=== PATIENT | female | born 1940 | race Caucasian/White ===

== ENCOUNTER 2022-12-14 13:01 | Emergency (ER) | payer MEDICARE, SELFPAY ==
[2022-12-14] VITALS (12 sets, daily range): BP systolic 147–177; BP diastolic 79–96; PULSE 71–89; RESP 9–23; TEMP 36.8–36.9; O2SAT 95–98
[2022-12-14 13:35] LABS: Basophils Percent Auto 0.5 % (0.2-1.2); Eosinophils Absolute Auto 0.1 K/mm3 (0-0.3); Eosinophils Percent Auto 1.9 % (0-4.4); Hematocrit 46.2 % (37.0-47.0); Hemoglobin 14.7 g/dL (12.0-15.0); Immature Granulocyte Absolute 0.02 K/mm3 (0.00-0.031); Immature Granulocyte Percent A 0.3 % (0-0.5); Lymphocytes Absolute Auto 1.32 K/mm3 (0.9-3.2); Lymphocytes Percent Auto 22.3 % (18.3-44.2); Mean Corpuscular HGB Conc 31.8 g/dl (32-36); Mean Corpuscular Hemoglobin 30.2 pg (26-34); Mean Corpuscular Volume 94.9 fl (80-100); Mean Platelet Volume 9.5 fl (7.4-10.4); Monocytes Absolute Auto 0.9 K/mm3 (0.1-0.6); Monocytes Percent Auto 15.2 % (2.6-8.5); Neutrophils Absolute Auto 3.5 K/mm3 (1.3-6.7); Neutrophils Percent Auto 59.8 % (45.5-73.1); Platelet Count Result 276 k/mm3 (150-375); Red Blood Count 4.87 M/mm3 (4.2-5.4); Red Cell Distribution Width 13.2 % (11.5-14.5); White Blood Count 5.9 K/mm3 (4.5-10.0)
[2022-12-14 13:42] LABS: Ethanol < 10 mg/dL (<10)
[2022-12-14 13:45] LABS: Alanine Aminotransferase 48 U/L (6-35); Albumin Level 4.1 g/dL (3.5-5.1); Alkaline Phosphatase 67 U/L (38-126); Anion Gap 9 mmol/L (8-16); Aspartate Amino Transferase 47 U/L (14-36); Bilirubin,Total 0.4 mg/dL (0.2-1.3); Blood Urea Nitrogen 11 mg/dL (7-17); Carbon Dioxide 29 mmol/L (22-30); Chloride 101 mmol/L (98-107); Estimated CRCL calculation 82 ml/min; Estimated Glomerular Filt Rate > 60; Glucose 97 mg/dL (65-110); Potassium 4.1 mmol/L (3.4-5.0); Sodium 139 mmol/L (137-145)
[2022-12-14 14:10] LABS: Amphetamine Screen Urine Negative (Negative); Barbiturate Screen Urine Negative (Negative); Benzodiazepines Screen Urine Negative (Negative); Cannabinoid Screen Urine Negative (Negative); Cocaine Screen Urine Negative (Negative); Methadone Screen Urine Negative (Negative); Opiate Screen Urine Negative (Negative); Phencyclidine Screen Urine Negative (Negative)
--- NOTE | 2022-12-14 14:20 | PC.NURSE ---
Lab called regarding status of UA results.
--- NOTE | 2022-12-14 14:24 | PC.NURSE ---
Per lab, not enough urine to perform UA.
[2022-12-14 15:05] LABS: Appearance Urine Clear (Clear); Bilirubin Urine Negative (Negative); Blood Urine Negative (Negative); Color Urine Yellow (Yellow); Glucose Urine UA Negative (Negative); Ketones Urine Negative (Negative); Leukocyte Esterase Ur Negative LEU/UL (Negative); Nitrate Urine Negative (Negative); Protein Urine Negative (Negative); Specific Grav Ur 1.006 (1.001-1.035); Urobilinogen Urine 0.2 mg/dL (<2.0); pH Urine 7.5 (5.0-9.0)
--- NOTE | 2022-12-14 15:13 | ED.GENADULT ---
HPI - General Adult General Chief complaint: Psychiatric Symptoms Stated complaint: psychotic, SI Time Seen by Provider: 12/14/22 13:30 Source: patient, family and old records reviewed Mode of arrival: EMS Limitations: no limitations History of Present Illness HPI narrative: Patient is an 82-year-old female, with a PMHx of dementia, who presents to the ED via EMS with report of agitation. Patient is a resident of [facility]. Per SD report, patient became agitated today and got into a verbal argument with staff demanding to go home. EMS was then contacted to bring the patient here for a psychiatric evaluation. Patient denies any SI or HI. She just reports that she became angry today and reached a breaking point. She was recently started on medication for depression and bipolar disorder per daughter at bedside who assisted in providing information. Daughter reports patient was moved into memory care facility at the beginning of November. She had previously been living with her who was her primary caregiver. Daughter states is a trigger for the patient and patient believes can take her home at any time. Patient wanted to go home today and was asking for her to take her home and became angry when staff told her differently. Related Data Home Medications Medication Instructions Recorded Confirmed calcium carbonate 600 mg-vitamin 1 tablet PO DAILY 12/04/19 D3 20 mcg (800 unit) tablet (Caltrate with Vitamin D3) levothyroxine 88 mcg capsule 88 mcg PO DAILY 12/04/19 omeprazole 40 mg capsule,delayed 40 mg PO DAILY 12/04/19 release donepezil 10 mg tablet 10 mg PO ONCE 03/08/20 memantine 10 mg tablet 10 mg PO BID 03/08/20 divalproex 125 mg capsule,delayed 125 mg PO BID 12/14/22 release sprinkle escitalopram oxalate 10 mg tablet 10 mg PO DAILY 12/14/22 mecobalamin (vitamin B12) 1,000 1,000 mcg PO DAILY 12/14/22 mcg chewable tablet multivit with minerals-iron 18 1 tablet PO 12/14/22 mg-folic ac 400 mcg-vit K 25 mcg tablet (Adults Multivitamin) quetiapine 25 mg tablet 50 mg PO HS 12/14/22 turmeric root extract 500 mg 500 mg PO DAILY 12/14/22 capsule Allergies Allergy/AdvReac Type Severity Reaction Status Date / Time azithromycin AdvReac Unknown Swelling Verified 12/14/22 13:12 Review of Systems Review of Systems: CONSTITUTIONAL: Denies fever, chills, or sweats. EYES: Denies visual changes. CARDIOVASCULAR: Denies chest pain. RESPIRATORY: Denies dyspnea. GASTROINTESTINAL: Denies abdominal pain, nausea, vomiting, or diarrhea. GENITOURINARY: Denies dysuria or hematuria. NEUROLOGIC: Denies headache, numbness, or weakness. PSYCHIATRIC: See HPI. All systems reviewed & are unremarkable except as noted in HPI and below PMFSH Past Medical History Medical History DESI positive (~09/2019) Generalized osteoarthritis of multiple sites Inflammatory arthritis Lichen planus Other specified counseling Surgical History Surgical History H/O total hysterectomy History of knee replacement Social History Social History Smoking status: Former smoker Alcohol intake: never Exam Narrative: GENERAL: Well appearing, obese, non-toxic, in no acute distress. HEAD: Normocephalic, atraumatic. NECK: Supple. No adenopathy, no masses. RESPIRATORY: Airway patent, respirations nonlabored. Clear to auscultation bilaterally, no rales, rhonchi, wheezing. CARDIOVASCULAR: Regular rate and rhythm without murmurs, rubs, or gallops. Radial pulses 2+ and equal bilaterally. ABDOMINAL: Soft, no tenderness throughout abdomen, nondistended, no hepatosplenomegaly. Normoactive BS. MUSCULOSKELETAL: Moves all extremities. Strength/ROM intact without gross deformities. SKIN: Warm, dry, normal color. No rashes.
[2022-12-14 15:45] LABS: Add Urine Microscopic? NO
--- NOTE | 2022-12-14 18:23 | PC.NURSE ---
pt able to be discharged but daughter requesting mother be transported via ems since she doesnt have pts wheelchair with her. jona unable to do transfer. [facility] eta 1999.
--- NOTE | 2022-12-14 18:25 | PC.NURSE ---
[facility] Med accepted return to [facility] ETA 20p
--- NOTE | 2022-12-14 18:30 | PC.NURSE ---
pts daughter states she will transport pt to [facility] but needs to drive to [place] to get another vehicle. waiting family return for discharge. pt assisted in dressing and into wheelchair.
--- NOTE | 2022-12-14 19:14 | PC.NURSE ---
report called to santiago castro.
== END 2022-12-14 19:50 ==
PROVIDERS: Emergency Medicine; Emergency Provider Physician Assistant; PCP Family Medicine
DX: F03.911 Unspecified dementia, unspecified severity, with agitation (principal); F32.A Depression, unspecified; M19.90 Unspecified osteoarthritis, unspecified site; Z90.710 Acquired absence of both cervix and uterus; Z96.659 Presence of unspecified artificial knee joint; Z87.891 Personal history of nicotine dependence; Z79.899 Other long term (current) drug therapy
CPT/HCPCS: 36415; 80053; 80307; 81003; 84443; 85025; 99283

== ENCOUNTER 2024-06-28 23:38 | Emergency (ER) | payer MEDICARE, SELFPAY ==
--- NOTE | ~2024-06-28 | CT_ITS ---
Noncontrast CT scan of the lumbar spine CLINICAL HISTORY: Trauma TECHNIQUE: Axial noncontrast imaging of the lumbar spine was performed. Sagittal and coronal reformat joann images were constructed. Dose reduction technique was used on this scan by utilizing automated ex posure control and iterative reconstruction technique. The dose-length product (DLP) was 1467.90 mGy- cm. FINDINGS: There is levoscoliosis of the lumbar spine. There is 3 mm anterolisthesis of L4 over L5. No acute fracture seen. At L1-L2, there is moderate degenerative disc 9. There is mild disc bulge and moderate facet arthropa thy. No erlin central canal stenosis. There is advanced left neural foraminal narrowing, and mild to moderate right neural foraminal narrowing. At L2-L3, there is severe degenerative disc narrowing. There is disc osteophyte complex and moderate facet arthropathy. There is probable mild central canal stenosis. There is severe bilateral neural fo raminal compromise. At L3-L4, there is severe degenerative disc narrowing. There is disc bulge and severe facet arthropat hy, resulting in severe spinal canal stenosis. There is severe right neural foraminal compromise, and moderate to severe left neural foraminal compromise. At L4-L5, there is severe degenerative disc narrowing. Disc bulge and severe facet arthropathy are pr esent, contribute to severe spinal canal stenosis. There is severe bilateral neural foraminal comprom ise. At L5-S1, there is minimal disc bulge with moderate facet arthropathy. No central canal stenosis. The re is severe bilateral neural foraminal narrowing, right worse than left. Paravertebral soft tissues are unremarkable. Impression: No acute fracture. 3 mm anterolisthesis of L4 over L5. Severe degenerative spondylosis throughout the lumbar spine, as detailed above. Reviewed, dictated and finalized at [facility]. Impression: No acute fracture. 3 mm anterolisthesis of L4 over L5. Severe degenerative spondylosis throughout the lumbar spine, as detailed above.
--- NOTE | ~2024-06-28 | CT_ITS ---
CT head without contrast Indication: Status post fall Technique: Serial scans were obtained through the brain without the administration of contrast. Dose reduction technique was used on this scan by utilizing automated exposure control and iterative recon struction technique. The dose-length product (DLP) was 605.33 mGy-cm. Findings: There is no evidence of intracranial hemorrhage, mass lesion, or acute infarct. The ventri cles and subarachnoid spaces are dilated, consistent with moderate atrophy. Element of normal pressur e hydrocephalus is not excluded Low attenuation regions are seen within the periventricular white mat ter bilaterally, likely representing changes from chronic microvascular ischemic disease. There is no evidence of edema, mass effect or midline shift. The visualized paranasal sinuses and mastoid air cells are clear. Impression: No intracranial hemorrhage, mass, or acute infarct. Possible element of normal pressure hydrocephalus. Atrophy and chronic white matter changes, as above. Reviewed, dictated and finalized at [facility]. Impression: No intracranial hemorrhage, mass, or acute infarct. Possible element of normal pressure hydrocephalus. Atrophy and chronic white matter changes, as above.
[2024-06-28 23:40] VITALS: BP 136/59; PULSE 78; RESP 14; TEMP 36.6; O2SAT 96
--- NOTE | 2024-06-28 23:58 | ED.FALL ---
HPI - Fall General Chief Complaint: Fall Stated Complaint: back pain Time Seen by Provider: 06/28/24 23:48 History of Present Illness HPI Narrative: 84-year-old female presenting to the emergency department for evaluation after having a ground level fall. Patient is not typically supposed to be ambulating but patient was found lying on the ground calling for help. At that time patient declined any injury to her head. Patient was complaining of lower back pain. Upon arrival emergency department patient denies any pain or complaint. Related Data Home Medications Medication Instructions Recorded Confirmed calcium 600 mg (as 1 tablet PO DAILY 12/04/19 carbonate)-vitamin D3 20 mcg (800 unit) tablet (Caltrate with Vitamin D3) levothyroxine 88 mcg capsule 88 mcg PO DAILY 12/04/19 omeprazole 40 mg capsule,delayed 40 mg PO DAILY 12/04/19 release donepezil 10 mg tablet 10 mg PO ONCE 03/08/20 memantine 10 mg tablet 10 mg PO BID 03/08/20 divalproex 125 mg capsule,delayed 125 mg PO BID 12/14/22 release sprinkle escitalopram oxalate 10 mg tablet 10 mg PO DAILY 12/14/22 mecobalamin (vitamin B12) 1,000 1,000 mcg PO DAILY 12/14/22 mcg chewable tablet multivit with minerals-iron 18 1 tablet PO 12/14/22 mg-folic ac 400 mcg-vit K 25 mcg tablet (Adults Multivitamin) quetiapine 25 mg tablet 50 mg PO HS 12/14/22 turmeric root extract 500 mg 500 mg PO DAILY 12/14/22 capsule Allergies Allergy/AdvReac Type Severity Reaction Status Date / Time azithromycin AdvReac Unknown Swelling Verified 12/14/22 13:12 Review of Systems Review of Systems: All systems reviewed & are unremarkable except as noted in HPI and below PMFSH Past Medical History Medical History (Updated 06/30/24 @ 00:00 by Darvin Burroughs) DESI positive (~09/2019) Generalized osteoarthritis of multiple sites Inflammatory arthritis Lichen planus Other specified counseling Surgical History Surgical History H/O total hysterectomy History of knee replacement Social History Social History Smoking status: Former smoker Alcohol intake: never Exam Narrative: APPEARANCE: Well appearing, no pain, no distress, well-nourished. HEAD: normocephalic, atraumatic. EYES: PERRLA/EOMI, conjunctivae clear. NOSE: Normal no drainage EARS:TMS clear with good light reflex. THROAT: Pharynx clear, no exudate. NECK: Supple. No adenopathy, no masses. RESPIRATORY: Airway patent, respirations nonlabored. Clear to auscultation bilaterally, no rales, rhonchi, wheezing. CARDIOVASCULAR: Regular rate and rhythm without murmurs rubs or gallops. ABDOMINAL: Soft, nontender, nondistended, normal bowel sounds MUSCULOSKELETAL: Moves all extremities. Strength/ROM intact, No edema, No calf tenderness. NEURO: Alert. Cranial nerves II through XII intact. Good gait. Good coordination SKIN: Warm, dry. Normal Color Course Course Emergency Course: Patient had no acute injuries and was discharged back to her care facility. Vital Signs Vital signs: Vital Signs Temperature 98 F 06/28/24 23:40 Pulse Rate 78 06/28/24 23:40 Respiratory Rate 14 06/28/24 23:40 Blood Pressure 136/59 L 06/28/24 23:40 Pulse Oximetry 96 06/28/24 23:40 Oxygen Delivery Room Air 06/28/24 23:40 Temperature 97.6 F 06/29/24 03:58 Pulse Rate 76 06/29/24 03:58 Respiratory Rate 16 06/29/24 03:58 Blood Pressure 155/68 H 06/29/24 03:58 Pulse Oximetry 99 06/29/24 03:58 Oxygen Delivery Room Air 06/28/24 23:40 MDM - Fall MDM Narrative Medical decision making narrative: 84-year-old female who was not meant to be walking without assistance ambulate without assistance. Patient denies any current pain or injury. X-rays were negative for acute fracture dislocation. Patient was and no distress in the emergency department. Patient
[2024-06-28 23:59] VITALS: BP 157/71; PULSE 74; RESP 13; TEMP 36.6; O2SAT 98
[2024-06-29 02:00] VITALS: BP 168/75; PULSE 77; RESP 16; TEMP 36.7; O2SAT 96
[2024-06-29 03:58] VITALS: BP 155/68; PULSE 76; RESP 16; TEMP 36.4; O2SAT 99
== END 2024-06-29 05:25 ==
PROVIDERS: Emergency Provider Emergency Medicine; PCP Family Medicine
DX: S39.92XA Unspecified injury of lower back, initial encounter (principal); S09.90XA Unspecified injury of head, initial encounter; M19.90 Unspecified osteoarthritis, unspecified site; Z96.659 Presence of unspecified artificial knee joint; Z87.891 Personal history of nicotine dependence; Z90.710 Acquired absence of both cervix and uterus; Z79.899 Other long term (current) drug therapy; W19.XXXA Unspecified fall, initial encounter
CPT/HCPCS: 70450; 72131; 99284